=== PATIENT | female | born 1940 | race Caucasian/White ===

== ENCOUNTER → 2021-03-31 | Outpatient (CLI) | payer BC ==
[~2021-03-31] MED LIST: Aspir-Low81 MG PO; BIEST/PROGESTERONE; DHEA PO; LIOTHYRONINE S MC; PROGESTERONE M100 GM MC; Percocet 5-3251 EACH PO; T3/T4 SR; [UNRECOGNIZED DRUG - OTHER] PO
== END | disposition home or self-care (01) ==
LOC: LAB 13:44 → LAB SHORT 13:44
DX: D48.5 Neoplasm of uncertain behavior of skin (principal)
CPT/HCPCS: 88305

== ENCOUNTER 2024-08-21 09:07 | Inpatient (IN) | payer BC ==
[2024-08-21] VITALS (18 sets, daily range): BP systolic 122–161; BP diastolic 53–113
[~2024-08-21] VITALS: Ht 167.6 cm; Wt 48.6 kg
[~2024-08-21 09:07] MED LIST changes: +B-12500 MC2 PO; +DONEPEZIL HCL10 MG PO; +KEPPRA250 M1 PO; +LEVOTHYROXINE50 MC9 PO; +MAGNESIUM OXID500 MG PO; +Percocet 5-3251 EACH; +RESVERATROL100 MG PO; +Vitamin C100 MG; +Vitamin D1000 UNI1 PO
[2024-08-21] MEDS ORDERED: Lactated Ringer's 1,000 ML IV SCH (10:05)
[2024-08-21] MEDS ORDERED: CeFAZolin Sodium 2,000 MG in NS 100 ML IV SCH (10:05)
[2024-08-21] MEDS ORDERED: CeFAZolin Sodium 2,000 MG VIAL ONE (10:25)
--- NOTE | 2024-08-21 10:35 | NUR ---
Ambulatory in Day Surgery WITH STEADY GAIT. History, Chart, Medications and Allergies reviewed before start of procedure. PT'S SPOUSE AND SON AT BEDSIDE TO HELP WITH PT'S HISTORY. PT HAS HX OF ALZHEIMERS AND DEMENTIA. Pre-Op teaching done. Pt verbalizes understanding WELL SPOUSE AND SON. PT TO BE EXTENDED RECOVERY. ALL BELONGINS PLACED UNDER GURN.
[2024-08-21] MEDS ORDERED: Bupivacaine 0.5% HCl 5 MG/ML 30MLVIAL ONE (10:36)
[2024-08-21] MEDS ORDERED: Bupivacaine 0.25% Epi 1:200000 30 ML Vial ONE (10:46)
[2024-08-21] MEDS ORDERED: Dexamethasone Sod Phos 10 MG/ML 1ML VIAL ONE (10:54)
[2024-08-21] MEDS ORDERED: Ketorolac Tromethamine 30mg Vial ONE (10:54)
[2024-08-21] MEDS ORDERED: propofoL 20 ML IV ONE (10:54)
[2024-08-21] MEDS ORDERED: Ondansetron HCl 2 MG / ML 2ML Vial ONE ×2 (10:54→12:50)
[2024-08-21] MEDS ORDERED: FentaNYL Citrate 50 MCG/ML 2 ML Injection ONE ×2 (10:54→12:52)
[2024-08-21] MEDS ORDERED: Rocuronium Bromide 10 MG/ML 5ML Injection IV ONE (10:56)
[2024-08-21] MEDS ORDERED: Lidocaine HCl 2% 20 ML MDV ONE (11:59)
[2024-08-21] MEDS ORDERED: HYDROmorphone HCl/Pf 1MG SYR IV PRN (12:00)
[2024-08-21] MEDS ORDERED: FentaNYL Citrate 50 MCG/ML 2 ML Injection IV PRN ×2 (12:00→12:05)
[2024-08-21] MEDS ORDERED: Ondansetron HCl 2 MG / ML 2ML Vial IV PRN (12:00)
[2024-08-21] MEDS ORDERED: HYDROmorphone HCl 0.5 MG/0.5 ML SYR IV PRN (12:00)
[2024-08-21] MEDS ORDERED: Acetaminophen 325 MG TABLET PO PRN ×2 (12:05→12:30)
[2024-08-21] MEDS ORDERED: Ketorolac Tromethamine 15mg Vial IV PRN (12:10)
[2024-08-21] MEDS ORDERED: HYDROcodone 5-APAP 325 TAB PO PRN (12:25)
[2024-08-21] MEDS ORDERED: FLU VACC TS2024-25(6MOS UP)/PF 45 MCG/0.5 ML SYRINGE IM ONE (12:25)
--- NOTE | 2024-08-21 13:44 | NUR ---
POST OP ARRIVED FROM PACU VIA GURNEY W/ AND SON, AWAKE, ALERT AND ORIENTED TO SELF AND FAMILY, COOPERATIVE W/ ASSESSMENT, DENIES ANY NEED FOR PAIN MEDS AT THIS TIME, BENJAMIN DRAIN NOTED ON L CHEST W/ SCANT AMOUNT OF SEROSANG. DRAINAGE, PT IS NOTED PICKING AT BREAST BINDER AND BENJAMIN DRAIN, PT REDIRECTED, CONT. TO MONITOR FOR ANY CHANGES.
--- NOTE | 2024-08-21 14:46 | NUR ---
Spiritual Care Visit. Pt. is known to this menswear salesperson from the community. Pt. displays evidence of significant confusion. Pts. Spouse and son are at bedside. Ass rapport was being re-established, this menswear salesperson received a call from the ICU. Prayed for the Pt. before I departed. Will follow up with Pt. and spouse.
--- NOTE | 2024-08-21 15:30 | NUR ---
PT CONT. TO PULL AT DSG AND LINES AND GETTING AGITATED, CLINICAL SITTER IN ROOM PRESENT, FAMILY AT BEDSIDE.
--- NOTE | 2024-08-21 16:56 | NUR ---
SUMMARY S/P L MASTECTOMY, CONFUSED, PULLING AT LINES AND DRESSINGS, 1:1 CLINICAL SITTER AT BEDSIDE, FAMILY HAD CONCERNS ABOUT CARING FOR PT AT DC, FAMILY HAD A DISCUSSION W/ JOB ANALYST THIS AFTERNOON, VSS, NO ACUTE CHANGES THIS SHIFT.
--- NOTE | 2024-08-21 17:06 | NUR ---
Returned to visit Pt. Pt. displays evidence of significant confusion. Sit next to the Pt. and attempt to speak to her. and a 1:1 sitter are present. After spending time with the Pt. I ttok her hand and prayed for her. Spouse verbalized gratitude for the bedside care and welcomed this police superintendent to return.
--- NOTE | 2024-08-21 18:38 | NUR ---
DR. DUENAS SAW PT THIS EVENING, VS NOTED, PT MEDICATED FOR PAIN, AT MOST OF HER DINNER, NOW SLEEPING, RRR, SITTER AT BEDSIDE FOR SAFETY, NO OTHER CHANGES THIS SHIFT.
[2024-08-21] MEDS ORDERED: Docusate Sodium 100 MG Cap PO SCH (21:00)
[2024-08-21] MEDS ORDERED: Donepezil HCl 5 MG Tab PO SCH (21:00)
[2024-08-21] MEDS ORDERED: LevETIRAcetam 500 MG Tab PO SCH (21:00)
[2024-08-22] VITALS: BP 112/57
[2024-08-22 04:27] VITALS: BP 104/62
[2024-08-22] MEDS ORDERED: Levothyroxine Sodium 0.05 MG Tab PO SCH (06:00)
--- NOTE | 2024-08-22 06:10 | NUR ---
SHIFT SUMMARY NOC. PT POD 1 FOR LEFT MASTECTOMY. DRESSING C/D/I WITH BINDER IN PLACE. BENJAMIN DRAIN PRODUCING SEROSANG DRAINAGE AND TUBING FREE OF KINKS. PT VOIDING URINE AND TOLERATING MINIMAL INTAKE WHILE AWAKE. PT ATTEMPTED TO GET OUT OF BED MULITIPLE TIMES THIS SHIFT. PT HAD SITTER T/O NIGHT. PT A/O TO SELF AND FAMILY ONLY WITH HX OF DEMENTIA/ALZ. PT REFUSED BEDTIME MEDS AND BECAME AGGITATED. THIS RN AND MACHINE CHAIN MAKER ATTEMPTED TO GET PT TO TAKE PILLS. PT C/O PAIN THIS AM, TOOK THYROID AND PAIN PILL. PT HAD DIFFICULTY FOLLOWING DIRECTIONS AND REPEATEDLY SPIT OUT PILLS. CRUCHED MEDS IN APPLESAUCE AND PT TOLERATED BETTER BUT TOOK LOTS OF COACHING. RESTED WITH EYES CLOSED AND CALL LIGHT IN REACH.
[2024-08-22 07:42] VITALS: BP 122/72
[2024-08-22] MEDS ORDERED: Cyanocobalamin 500 MCG Tab PO SCH (09:00)
[2024-08-22] MEDS ORDERED: Ascorbic Acid 250 MG Chew PO SCH (09:00)
[2024-08-22] MEDS ORDERED: Magnesium Oxide 400 MG Tab PO SCH (09:00)
[2024-08-22] MEDS ORDERED: Cholecalciferol 1000 Unit Tablet (=25MCG) PO SCH (09:00)
[2024-08-22] MEDS ORDERED: ACET325 PO (10:31)
[2024-08-22] MEDS ORDERED: DOCU100 PO (10:31)
[2024-08-22] MEDS ORDERED: HYDR1TAB94 PO (10:32)
--- NOTE | 2024-08-22 11:12 | NUR ---
DISCHARGE POD 1 L MASTECTOMY DRESSING CHANGED THIS MORNING BY DR. DUENAS. BINDER REMAINED IN PLACE DURING SHIFT. BENJAMIN DRAIN EMPTIED PRIOR TO DISCHARGE, EDUCATED SPOUSE AND PATIENTS SON ON EMPTYING AND CHARTING OUTPUT. EXTRA SUPPLIES SENT WITH PATIENT AND FAMILY. ALL INSTRUCTIONS GONE OVER WIHT FAMILY, ALL BELONGINGS WITH PATIENT. ESCORTED OUT VIA WHEELCHAIR.
== END 2024-08-22 11:04 | disposition home or self-care (01) | DRG 583 ==
LOC: SURS 09:07 → PRE IP 10:30 → SURS 13:26
PROVIDERS: ADMIT Surgery
PROC: 0HBU0ZZ Excision of Left Breast, Open Approach (ICD-10-PCS; principal; 2024-08-21 10:30)
DX: C79.81 Secondary malignant neoplasm of breast (principal); E03.9 Hypothyroidism, unspecified; G31.83 Neurocognitive disorder with Lewy bodies; Z66 Do not resuscitate; F02.80 Dementia in other diseases classified elsewhere, unspecified severity, without behavioral disturbance, psychotic disturbance, mood disturbance, and anxiety; G30.9 Alzheimer's disease, unspecified; E78.5 Hyperlipidemia, unspecified; Z90.49 Acquired absence of other specified parts of digestive tract; Z90.89 Acquired absence of other organs; Z98.890 Other specified postprocedural states; Z79.82 Long term (current) use of aspirin; Z79.899 Other long term (current) drug therapy; Z79.890 Hormone replacement therapy; C43.9 Malignant melanoma of skin, unspecified
CPT/HCPCS: 88305; 88341; 88342; 94760; A9270; J0690; J1100; J1885; J2405; J2704; J3010; J7120

== ENCOUNTER → 2024-10-03 | Outpatient (CLI) | payer BC ==
[~2024-10-03] MED LIST changes: +ACET325 PO; +DOCU100 PO; +HYDR1TAB94 PO
[2024-10-10 08:40] LABS: HPV HIGH RISK BY TMA Not Detected; HPV SOURCE Vaginal
== END | disposition home or self-care (01) ==
LOC: LAB SHORT 10:14 → LAB 10:14
PROVIDERS: Obstetrics & Gynecology
DX: C43.9 Malignant melanoma of skin, unspecified (principal)
CPT/HCPCS: 87624; G0123

== ENCOUNTER → 2024-12-25 | Outpatient (CLI) | payer BC ==
[2024-12-26 11:08] LABS: Source, Urine Clean Catch
[2024-12-26 12:08] LABS: Bilirubin, Urine Neg (Neg); Color, Urine Yellow (P-Yellow); Glucose Qualitative, Urine Neg (Neg); Ketones, Urine Neg (Neg); Leukocyte Esterase, Urine 3+ (Neg); Protein, Urine 2+ (Neg); Specific Gravity, Urine 1.020 (1.003-1.022); Urobilinogen, Urine NORM (Normal)
[2024-12-26 12:28] LABS: White Blood Cells, Urine 25-50 /hpf (0-5)
== END | disposition home or self-care (01) ==
LOC: LAB SHORT 20:30 → LAB 20:30
PROVIDERS: Family Medicine
DX: N39.0 Urinary tract infection, site not specified (principal)
CPT/HCPCS: 81001; 87077; 87086; 87186

== ENCOUNTER → 2025-01-04 | Outpatient (CLI) | payer BC ==
[2025-01-04 12:52] LABS: BASOPHILS ABSOLUTE AUTO 0.04 K/mm3 (0.00-0.23); BASOPHILS PERCENT AUTO 1 % (0-2); EOSINOPHILS ABSOLUTE AUTO 0.05 K/mm3 (0.00-0.68); EOSINOPHILS PERCENT AUTO 1 % (0-6); Hematocrit 41.1 % (33.0-51.0); Hemoglobin 13.6 g/dL (11.5-16.0); IMMATURE GRAN ABSOLUTE AUTO 0.05 K/mm3 (0.00-0.10); IMMATURE GRAN PERCENT AUTO 1 % (0-1); LYMPHOCYTES ABSOLUTE AUTO 1.06 K/mm3 (0.84-5.20); LYMPHOCYTES PERCENT AUTO 24 % (21-46); MONOCYTES ABSOLUTE AUTO 0.35 K/mm3 (0.16-1.47); MONOCYTES PERCENT AUTO 8 % (4-13); Mean Corpuscular HGB Conc 33.1 g/dL (31.5-36.5); Mean Corpuscular Volume 100 fL (80-100); NEUTROPHILS ABSOLUTE AUTO 2.88 K/mm3 (1.96-9.15); NEUTROPHILS PERCENT AUTO 65 % (41-73); NRBC ABSOLUTE 0.00 K/mm3 (0.00-0.02); NRBC Auto 0.0 /100 WBC (0.0-0.2); Platelet Count 204 K/mm3 (150-400); RDW Coefficient Variation 13.0 % (11.7-14.2); RDW Standard Deviation 47.8 fL (35.1-46.3)
[2025-01-04 14:41] LABS: Alanine Aminotransfer (ALT/SGP 27.0 U/L (12-78); Albumin, Blood 3.2 g/dL (3.4-5.0); Albumin/Globulin Ratio 0.9 (0.8-1.8); Anion Gap 9.0 mmol/L (3-11); Aspartate Aminotrans (AST/SGOT 23.0 U/L (12-37); Bilirubin, Total 0.5 mg/dL (0.1-1.0); Blood Urea Nitrogen 15.0 mg/dL (8-24); CO2, Blood 28.0 mmol/L (21-32); Calcium, Blood 9.1 mg/dL (8.5-10.1); Chloride, Blood 108.0 mmol/L (98-108); Creatinine, Blood 0.86 mg/dL (0.40-1.00); Globulin, Blood 3.7 g/dL (2.2-4.0); Glucose, Blood 95.0 mg/dL (70-99); Potassium, Blood 3.7 mmol/L (3.5-5.5); Sodium, Blood 141.0 mmol/L (136-145); Thyroid Stimulating Hormone 1.98 uIU/mL (0.360-4.800); Total Protein, Blood 6.9 g/dL (6.4-8.2)
== END ==
LOC: LAB 12:10 → LAB SHORT 12:10
PROVIDERS: Family Medicine
DX: I10 Essential (primary) hypertension (principal); E03.9 Hypothyroidism, unspecified
CPT/HCPCS: 80053; 84443; 85025

== ENCOUNTER 2025-04-29 13:26 | Emergency (ER) | payer BC ==
[~2025-04-29] VITALS: Ht 167.6 cm; Wt 63.5 kg
--- NOTE | 2025-04-29 14:59 | NUR ---
Pt. is awake in ED3 and displays evidence of confusion. Spouse is at bedside and welcomes my visit. Pt. and spouse are both known to this digital media associate from the community. Facilitated an update from the spouse. Pt. is known to be a Pt. at [facility]. Prayed over the Pt. Spouse verbalized gratitude for the spiritual care visit and requested I share that I visited the Pt. with the elders of their bahai.
[2025-04-29 15:00] VITALS: BP 146/91
[2025-04-29] MEDS ORDERED: FentaNYL Citrate 50 MCG/ML 2 ML Injection IV ONE (16:10)
[2025-04-29] MEDS ORDERED: Ketorolac Tromethamine 15mg Vial IV ONE (16:10)
[2025-04-29] MEDS ORDERED: Percocet 5-3251 EACH PO (17:46)
[2025-04-29] MEDS ORDERED: OFLOXACIN5 M2 LEFTEAR (17:46)
== END 2025-04-29 18:05 | disposition home or self-care (01) ==
LOC: ER 13:26
DX: S02.622A Fracture of subcondylar process of left mandible, initial encounter for closed fracture (principal); S02.612A Fracture of condylar process of left mandible, initial encounter for closed fracture; S01.81XA Laceration without foreign body of other part of head, initial encounter; E03.9 Hypothyroidism, unspecified; Z79.890 Hormone replacement therapy; Z79.899 Other long term (current) drug therapy; Z59.89 Other problems related to housing and economic circumstances; W18.30XA Fall on same level, unspecified, initial encounter
CPT/HCPCS: 12013; 70450; 70486; 72125; 96374-59; 96375-59; 99284-25; J1885; J3010; L0160

== ENCOUNTER 2025-05-18 17:53 | Inpatient (IN) | payer BC ==
[~2025-05-18] VITALS: Ht 165.1 cm; Wt 51.7 kg
[~2025-05-18 17:53] MED LIST changes: +OFLOXACIN5 M2 LEFTEAR
[2025-05-18] MEDS ORDERED: Morphine Sulfate 4 MG/1 ML Injection IV ONE (19:00)
[2025-05-18 19:56] LABS: BASOPHILS ABSOLUTE AUTO 0.04 K/mm3 (0.00-0.23); BASOPHILS PERCENT AUTO 0 % (0-2); EOSINOPHILS ABSOLUTE AUTO 0.03 K/mm3 (0.00-0.68); EOSINOPHILS PERCENT AUTO 0 % (0-6); Hematocrit 44.1 % (33.0-51.0); Hemoglobin 14.1 g/dL (11.5-16.0); IMMATURE GRAN ABSOLUTE AUTO 0.06 K/mm3 (0.00-0.10); IMMATURE GRAN PERCENT AUTO 1 % (0-1); LYMPHOCYTES ABSOLUTE AUTO 0.97 K/mm3 (0.84-5.20); LYMPHOCYTES PERCENT AUTO 10 % (21-46); MONOCYTES ABSOLUTE AUTO 0.37 K/mm3 (0.16-1.47); MONOCYTES PERCENT AUTO 4 % (4-13); Mean Corpuscular HGB Conc 32.0 g/dL (31.5-36.5); Mean Corpuscular Volume 102 fL (80-100); NEUTROPHILS ABSOLUTE AUTO 8.46 K/mm3 (1.96-9.15); NEUTROPHILS PERCENT AUTO 85 % (41-73); NRBC ABSOLUTE 0.00 K/mm3 (0.00-0.02); NRBC Auto 0.0 /100 WBC (0.0-0.2); Platelet Count 188 K/mm3 (150-400); RDW Coefficient Variation 13.2 % (11.7-14.2); RDW Standard Deviation 50.0 fL (35.1-46.3)
[2025-05-18 20:09] LABS: Source, Urine Foley catheter
[2025-05-18 20:12] LABS: Bilirubin, Urine Neg (Neg); Color, Urine Yellow (P-Yellow); Glucose Qualitative, Urine Neg (Neg); Ketones, Urine Neg (Neg); Leukocyte Esterase, Urine 3+ (Neg); Protein, Urine 1+ (Neg); Specific Gravity, Urine 1.010 (1.003-1.022); Urobilinogen, Urine NORM (Normal)
[2025-05-18 20:23] LABS: Red Blood Cells, Urine 0-2 /hpf (0-2); White Blood Cells, Urine 50-100 /hpf (0-5)
[2025-05-18 20:28] LABS: Anion Gap 10.0 mmol/L (3-11); Blood Urea Nitrogen 20.0 mg/dL (8-24); CO2, Blood 23.0 mmol/L (21-32); Calcium, Blood 9.1 mg/dL (8.5-10.1); Chloride, Blood 109.0 mmol/L (98-108); Creatinine, Blood 1.02 mg/dL (0.40-1.00); Glucose, Blood 111.0 mg/dL (70-99); Magnesium, Blood 2.1 mg/dL (1.6-2.4); Potassium, Blood 4.7 mmol/L (3.5-5.5); Sodium, Blood 137.0 mmol/L (136-145); Thyroid Stimulating Hormone 1.52 uIU/mL (0.360-4.800)
[2025-05-18] MEDS ORDERED: Morphine Sulfate 4 MG/1 ML Injection IV PRN (21:00)
[2025-05-18] MEDS ORDERED: FLU VACC TS2025(65UP)/MF59C/PF 45 MCG/0.5 ML SYRINGE IM SCH (21:00)
[2025-05-18] MEDS ORDERED: Ondansetron HCl 2 MG / ML 2ML Vial IV PRN (21:05)
[2025-05-18] MEDS ORDERED: Naloxone HCl 0.4MG / ML 1ML Vial IV PRN (21:05)
[2025-05-18] MEDS ORDERED: CefTRIAXone Sodium 1,000 MG in NS 100 ML IV SCH (22:00)
[2025-05-18 23:44] VITALS: BP 142/76
[2025-05-19] VITALS (16 sets, daily range): BP systolic 91–135; BP diastolic 51–99
[2025-05-19] MEDS ORDERED: Morphine Sulfate 4 MG/1 ML Injection IV PRN (02:15)
[2025-05-19] MEDS ORDERED: ACET500 PO (05:08)
[2025-05-19] MEDS ORDERED: LOPE2C PO (05:12)
[2025-05-19] MEDS ORDERED: DULCOLAX400 MG/51 PO (05:15)
[2025-05-19] MEDS ORDERED: MIRALAX1714 PO (05:19)
[2025-05-19] MEDS ORDERED: Seroquel Xr50 MG PO (05:20)
[2025-05-19 05:33] LABS: BASOPHILS ABSOLUTE AUTO 0.04 K/mm3 (0.00-0.23); BASOPHILS PERCENT AUTO 0 % (0-2); EOSINOPHILS ABSOLUTE AUTO 0.00 K/mm3 (0.00-0.68); EOSINOPHILS PERCENT AUTO 0 % (0-6); Hematocrit 38.8 % (33.0-51.0); Hemoglobin 13.0 g/dL (11.5-16.0); IMMATURE GRAN ABSOLUTE AUTO 0.10 K/mm3 (0.00-0.10); IMMATURE GRAN PERCENT AUTO 1 % (0-1); LYMPHOCYTES ABSOLUTE AUTO 0.90 K/mm3 (0.84-5.20); LYMPHOCYTES PERCENT AUTO 6 % (21-46); MONOCYTES ABSOLUTE AUTO 0.65 K/mm3 (0.16-1.47); MONOCYTES PERCENT AUTO 4 % (4-13); Mean Corpuscular HGB Conc 33.5 g/dL (31.5-36.5); Mean Corpuscular Volume 98 fL (80-100); NEUTROPHILS ABSOLUTE AUTO 13.90 K/mm3 (1.96-9.15); NEUTROPHILS PERCENT AUTO 89 % (41-73); NRBC ABSOLUTE 0.00 K/mm3 (0.00-0.02); NRBC Auto 0.0 /100 WBC (0.0-0.2); Platelet Count 168 K/mm3 (150-400); RDW Coefficient Variation 13.2 % (11.7-14.2); RDW Standard Deviation 47.5 fL (35.1-46.3)
[2025-05-19 05:42] LABS: Prothrombin Time Results 11.7 Sec (9.7-11.5)
[2025-05-19 05:57] LABS: Alanine Aminotransfer (ALT/SGP 39.0 U/L (12-78); Albumin, Blood 3.0 g/dL (3.4-5.0); Albumin/Globulin Ratio 1.0 (0.8-1.8); Anion Gap 8.0 mmol/L (3-11); Aspartate Aminotrans (AST/SGOT 40.0 U/L (12-37); Bilirubin, Total 0.7 mg/dL (0.1-1.0); Blood Urea Nitrogen 20.0 mg/dL (8-24); CO2, Blood 29.0 mmol/L (21-32); Calcium, Blood 9.0 mg/dL (8.5-10.1); Chloride, Blood 108.0 mmol/L (98-108); Creatinine, Blood 0.86 mg/dL (0.40-1.00); Globulin, Blood 3.1 g/dL (2.2-4.0); Glucose, Blood 140.0 mg/dL (70-99); Magnesium, Blood 2.0 mg/dL (1.6-2.4); Potassium, Blood 4.6 mmol/L (3.5-5.5); Sodium, Blood 140.0 mmol/L (136-145); Total Protein, Blood 6.1 g/dL (6.4-8.2)
--- NOTE | 2025-05-19 06:38 | NUR ---
SHIFT SUMMARY PT ADMITTED TO FLOOR VIA ER D/T L HIP FX AFTER GLF. HX OF ALZHEIMERS AND UNABLE TO PROVIDE VERBAL INPUT. PAIN MANAGED WELL PER EMAR. SPO2 95% ON 2L O2 VIA NC. POLK CATH IN PLACE, PATENT, AND DRAINING TO GRAVITY. PT NPO @ 0000 IN ANTICIPATION OF SURGERY TODAY. PT RESTING IN BED, RESPIRATIONS EVEN AND UNLABORED. BED ALARM ON AND CALL LIGHT WITHIN REACH.
[2025-05-19] MEDS ORDERED: Polyethylene Glycol 3350 17 gm PO PRN (07:25)
[2025-05-19] MEDS ORDERED: HYDROcodone 5-APAP 325 TAB PO PRN ×2 (07:25→18:00)
--- NOTE | 2025-05-19 08:56 | NUR ---
0885 PT'S /POA IN ROOM WITH PT. DR GONZALEZ EN ROUTE.
[2025-05-19] MEDS ORDERED: Lactobacil 2-S.Thermo-Bifido 1 1 Cap PO SCH (09:00)
[2025-05-19] MEDS ORDERED: Tranexamic Acid 100 ML IV SCH (11:20)
[2025-05-19] MEDS ORDERED: Ropivacaine 0.5% HCl/Pf 123.125 MG,EPINEPHrine HCL 0.25 MG,Ketorolac Tromethamine 15 MG... INFIL SCH (11:20)
[2025-05-19] MEDS ORDERED: CeFAZolin Sodium 2,000 MG in NS 100 ML IV SCH (11:20)
[2025-05-19] MEDS ORDERED: CefTRIAXone 1000 MG Vial ONE (14:36)
--- NOTE | 2025-05-19 15:28 | NUR ---
PT TO PACU VIA BED AT 1455 FROME RM 212 FOR PREOP CARE. AT BEDSIDE SPEAKING FOR PT. WARM BLANKETS PLACED. PT RESTING QUIETLY ON RIGHT SIDE. SURGICAL PACK COMPLETE. SURGICAL HAT/BP CUFF PLACED. AFEBRILE/VSS. LR AT TKO. APPEARS COMFORTABLE & RELAXED. WILL CONTINUE TO MONITOR PT DURING MY CARE.
--- NOTE | 2025-05-19 15:32 | NUR ---
PT TO OR 3 VIA BED AT 1525 IN STABLE CONDITION.
[2025-05-19] MEDS ORDERED: Phenylephrine HCl 100 MCG/ML-NS 10MLSYR (1MG/10ML) ONE ×2 (16:30)
[2025-05-19] MEDS ORDERED: Dexamethasone Sod Phos 10 MG/ML 1ML VIAL ONE (16:42)
[2025-05-19] MEDS ORDERED: Ondansetron HCl 2 MG / ML 2ML Vial ONE (16:42)
[2025-05-19] MEDS ORDERED: Sugammadex Sodium 200 MG/2ML SDV (100 MG/ML) ONE (17:08)
--- NOTE | 2025-05-19 17:18 | NUR ---
SHIFT SUMMARY PT PRESENTLY IN OR GETTING A LILIAN HIP SURGERY BY DR GONZALEZ. AWAITING PACU DISCHARGE AND RETURN TO FLOOR.
[2025-05-19] MEDS ORDERED: HYDROmorphone HCl/Pf 1MG SYR IV PRN ×2 (17:30→18:00)
[2025-05-19] MEDS ORDERED: FentaNYL Citrate 50 MCG/ML 2 ML Injection IV PRN ×2 (17:35)
[2025-05-19] MEDS ORDERED: Ondansetron HCl 2 MG / ML 2ML Vial IV PRN ×2 (17:35→17:55)
[2025-05-19] MEDS ORDERED: Naloxone HCl 0.4MG / ML 1ML Vial IV PRN (17:55)
[2025-05-19] MEDS ORDERED: Magnesium Hydroxide Conc 10 ML UDC PO PRN (17:55)
[2025-05-19] MEDS ORDERED: FLU VACC TS2025(65UP)/MF59C/PF 45 MCG/0.5 ML SYRINGE IM SCH (18:00)
[2025-05-19] MEDS ORDERED: Ketorolac Tromethamine 15mg Vial IV PRN (18:05)
--- NOTE | 2025-05-19 18:30 | NUR ---
PT TO ROOM 212 FROM PACU. L HIP DRESSING CDI. PT SLEEPY. POST OP VS STARTED. LR @ 50/HR RESTARTED. SO AT BEDSIDE. SCDS ON. POLK CATHETER IN PLACE DRAINING CLEAR YELLOW URINE. WILL CONTINUE TO MONITOR.
--- NOTE | 2025-05-20 01:06 | NUR ---
PHARM CHIKI BHAGAT NOW AND BID ORDER TO START @7754
[2025-05-20 05:10] LABS: BASOPHILS ABSOLUTE AUTO 0.02 K/mm3 (0.00-0.23); BASOPHILS PERCENT AUTO 0 % (0-2); EOSINOPHILS ABSOLUTE AUTO 0.00 K/mm3 (0.00-0.68); EOSINOPHILS PERCENT AUTO 0 % (0-6); Hematocrit 34.6 % (33.0-51.0); Hemoglobin 11.0 g/dL (11.5-16.0); IMMATURE GRAN ABSOLUTE AUTO 0.07 K/mm3 (0.00-0.10); IMMATURE GRAN PERCENT AUTO 1 % (0-1); LYMPHOCYTES ABSOLUTE AUTO 0.64 K/mm3 (0.84-5.20); LYMPHOCYTES PERCENT AUTO 6 % (21-46); MONOCYTES ABSOLUTE AUTO 0.47 K/mm3 (0.16-1.47); MONOCYTES PERCENT AUTO 4 % (4-13); Mean Corpuscular HGB Conc 31.8 g/dL (31.5-36.5); Mean Corpuscular Volume 102 fL (80-100); NEUTROPHILS ABSOLUTE AUTO 10.39 K/mm3 (1.96-9.15); NEUTROPHILS PERCENT AUTO 90 % (41-73); NRBC ABSOLUTE 0.00 K/mm3 (0.00-0.02); NRBC Auto 0.0 /100 WBC (0.0-0.2); Platelet Count 122 K/mm3 (150-400); RDW Coefficient Variation 13.3 % (11.7-14.2); RDW Standard Deviation 50.0 fL (35.1-46.3)
[2025-05-20 05:37] LABS: Alanine Aminotransfer (ALT/SGP 29.0 U/L (12-78); Albumin, Blood 2.3 g/dL (3.4-5.0); Albumin/Globulin Ratio 0.7 (0.8-1.8); Anion Gap 9.0 mmol/L (3-11); Aspartate Aminotrans (AST/SGOT 48.0 U/L (12-37); Bilirubin, Total 0.6 mg/dL (0.1-1.0); Blood Urea Nitrogen 23.0 mg/dL (8-24); CO2, Blood 25.0 mmol/L (21-32); Calcium, Blood 8.6 mg/dL (8.5-10.1); Chloride, Blood 114.0 mmol/L (98-108); Creatinine, Blood 0.7 mg/dL (0.40-1.00); Globulin, Blood 3.1 g/dL (2.2-4.0); Glucose, Blood 141.0 mg/dL (70-99); Magnesium, Blood 2.0 mg/dL (1.6-2.4); Phosphorus, Blood 3.9 mg/dL (2.5-4.9); Potassium, Blood 5.1 mmol/L (3.5-5.5); Sodium, Blood 143.0 mmol/L (136-145); Total Protein, Blood 5.4 g/dL (6.4-8.2)
--- NOTE | 2025-05-20 06:30 | NUR ---
SHIFT SUMMARY POD 1 L HIP LILIAN ARTHROPLASTY. PT DROWSY BUT RESPONDS TO VERBAL STIMULI. HX OF ALZHEIMER. PT ORIENTED TO SELF AT TIMES, UNCOOPERATIVE WITH CARE, AND COMBATIVE THIS SHIFT. NO PO INTAKE THIS SHIFT. PAIN MANAGED WELL PER EMAR. CONTINUOUS PULSE OX IN PLACE SPO2 93% ON RA. DRESSING TO L HIP C/D/I. POLK IN PLACE, PATENT, AND DRAINING TO GRAVITY. PT RESTING IN BED, RESPIRATIONS EVEN AND UNLABORED. CALL LIGHT WITHIN REACH.
[2025-05-20 07:20] VITALS: BP 126/70
[2025-05-20 14:35] VITALS: BP 152/75
--- NOTE | 2025-05-20 15:36 | NUR ---
PT ARRIVED TO UNIT VIA BED, SEIZURE PADS IN PLACE, INDEWLLING CATHETER DRAINING DARK YELLOW URINE, PT ORIENTED X1-AWAKE, HX OF LEWY DEMENTIA, AZHEIMERS-PER REPORT PT IS INCOHERENT AND UNDIRECTABLE, CAN BE PHYSICALLY AGGRESSIVE AND WILL SPIT MEDICATIONS. VSS, CAP REFILL TO LEFT FOOT GREATER THAN 3 SECONDS, PT MOVES TOES WHEN TOUCHED. HIP DRESSING CDI. IV SL TO LEFT FA-CDI, SKIN TEAR LEFT ELBOW-FOAM DRESSING CDI, WBAT WITH POSTERIOR HIP PRECUATIONS- 2P MAX ASSIST. BED ALARM ON, CALL LIGHT IN REACH.
--- NOTE | 2025-05-20 16:44 | NUR ---
TRANSFER NOTE: PATIENT TRANSFERED TO MEDICAL FLOOR ROOM 347. PATIENT JOSES PROVIDED TO PATIENT. THIS NURSE GAVE REPORT TO JESUS COTA.
[2025-05-20] MEDS ORDERED: Enoxaparin 40 MG/0.4 ML SYR SC SCH (17:00)
[2025-05-20] MEDS ORDERED: Polyethylene Glycol 3350 17 gm PO ONE (17:20)
[2025-05-20] MEDS ORDERED: THERA-D2000 UNIT PO (17:28)
[2025-05-20] MEDS ORDERED: 8 HOUR ACETAMI650 MG PO (17:30)
[2025-05-20] MEDS ORDERED: BISMUTH SUBSALICYLAT PO (17:32)
[2025-05-20 17:48] VITALS: BP 109/81
--- NOTE | 2025-05-20 18:11 | NUR ---
SKIN ASSESSMENT COMPLETED BY THIS RN AND HOSSEIN LEE UPON PT ARRIVAL TO MEDICAL UNIT. SKIN TEAR TO LEFT ELBOW-DRSG CDI, ABRAIONS TO BILATERAL ELBOW, LEFT HIP SURGICAL INCISION DRESSING CDI.
--- NOTE | 2025-05-20 18:42 | NUR ---
TRANSFER FROM SURGICAL FLOOR THIS AFTERNOON, PER DR LOUIS GIVE ORAL PAIN MEDS VS IV PER EMAR- TO KEEP PT'S PAIN COMFORTABLE, IF PT RESTING OR SHOWS NO DISCOMFORT DO NOT GIVE. CRUSH MEDS IN APPLESAUCE AND GIVE SMALL BITES AT A TIME TO PREVENT PT FROM SPITTING. VISITING THIS EVENING. BED ALARM AT ALL TIMES-HIGH FALL RISK, CALL LIGHT IN REACH, PROPOSEFUL ROUNDING.
[2025-05-20 19:59] VITALS: BP 135/104
[2025-05-20] MEDS ORDERED: NS 250 ML IV PRN (20:05)
--- NOTE | 2025-05-20 23:51 | NUR ---
SPOKE W/ PT SPOUSE AT BEDSIDE DURING BEDSIDE REPORT. PT HAS ADVANCED DIRECTIVE, CALLED DR AND OBTAINED ORDER FOR DNR.
[2025-05-21 03:38] VITALS: BP 163/110
[2025-05-21 06:08] LABS: BASOPHILS ABSOLUTE AUTO 0.03 K/mm3 (0.00-0.23); BASOPHILS PERCENT AUTO 0 % (0-2); EOSINOPHILS ABSOLUTE AUTO 0.19 K/mm3 (0.00-0.68); EOSINOPHILS PERCENT AUTO 2 % (0-6); Hematocrit 30.3 % (33.0-51.0); Hemoglobin 10.0 g/dL (11.5-16.0); IMMATURE GRAN ABSOLUTE AUTO 0.04 K/mm3 (0.00-0.10); IMMATURE GRAN PERCENT AUTO 1 % (0-1); LYMPHOCYTES ABSOLUTE AUTO 1.02 K/mm3 (0.84-5.20); LYMPHOCYTES PERCENT AUTO 12 % (21-46); MONOCYTES ABSOLUTE AUTO 0.50 K/mm3 (0.16-1.47); MONOCYTES PERCENT AUTO 6 % (4-13); Mean Corpuscular HGB Conc 33.0 g/dL (31.5-36.5); Mean Corpuscular Volume 98 fL (80-100); NEUTROPHILS ABSOLUTE AUTO 7.01 K/mm3 (1.96-9.15); NEUTROPHILS PERCENT AUTO 80 % (41-73); NRBC ABSOLUTE 0.00 K/mm3 (0.00-0.02); NRBC Auto 0.0 /100 WBC (0.0-0.2); Platelet Count 116 K/mm3 (150-400); RDW Coefficient Variation 13.2 % (11.7-14.2); RDW Standard Deviation 46.9 fL (35.1-46.3)
--- NOTE | 2025-05-21 06:30 | NUR ---
SHIFT SUMMARY PT A&0 TO SELF AND IS MINIMALLY REDIRECTABLE. PT SLOW TO RESPOND, BUT FOLLOWS DIRECTIONS APPROPRIATELY. PT BP ELEVATED, REMAINING VSS. NO COMPLAINTS OF CP/PRESSURE OR SOB. MEDICATED FOR PAIN AND SCHEDULED MEDS ADMINISTERED. IV WAS LEAKING, IV REMOVED AND NO ADVERSE EFFECTS AT THIS TIME. NEW IV PLACED IN RAC. NO ACUTE EVENTS AT THIS TIME. PT SPENT MOST OF SHIFT IN BED RESTING. CATHETER IN PLACE, SECURED W/ STATLOCK, AND DRAINING TO GRAVITY. FALL PRECAUTIONS IN PLACE AND CALL LIGHT IN REACH.
[2025-05-21 06:42] LABS: Alanine Aminotransfer (ALT/SGP 34.0 U/L (12-78); Albumin, Blood 2.3 g/dL (3.4-5.0); Albumin/Globulin Ratio 0.8 (0.8-1.8); Anion Gap 7.0 mmol/L (3-11); Aspartate Aminotrans (AST/SGOT 69.0 U/L (12-37); Bilirubin, Total 0.5 mg/dL (0.1-1.0); Blood Urea Nitrogen 36.0 mg/dL (8-24); CO2, Blood 26.0 mmol/L (21-32); Calcium, Blood 8.8 mg/dL (8.5-10.1); Chloride, Blood 112.0 mmol/L (98-108); Creatinine, Blood 0.79 mg/dL (0.40-1.00); Globulin, Blood 3.0 g/dL (2.2-4.0); Glucose, Blood 91.0 mg/dL (70-99); Magnesium, Blood 2.0 mg/dL (1.6-2.4); Potassium, Blood 4.0 mmol/L (3.5-5.5); Sodium, Blood 141.0 mmol/L (136-145); Total Protein, Blood 5.3 g/dL (6.4-8.2)
--- NOTE | 2025-05-21 07:28 | NUR ---
CODE STATUS RN SPOKE WITH PATIENT , HECTOR, ABOUT CODE STATUS. MADE IT CLEAR THAT IF HER HEART WERE TO STOP THAT THEY DO NOT WANT ANY INTERVENTIONS DONE. PT EDUCATED ON WHAT A DNR IS AND AGREED THAT IS WHAT HER ADVANCED DIRECTIVE STATES. DR. GAMBOA NOTIFIED OF THIS. ORDER FOR DNR PLACED. ORDER VERIFIED WITH ERICA CALVIN RN AND PURPLE BAND PLACED TO WRIST.
[2025-05-21 07:37] VITALS: BP 129/70
[2025-05-21] MEDS ORDERED: Polyethylene Glycol 3350 17 gm PO SCH (09:00)
[2025-05-21 15:14] VITALS: BP 123/63
--- NOTE | 2025-05-21 16:56 | NUR ---
SHIFT SUMMARY PT VERY CONFUSED. UNABLE TO BE ORIENTED. PT FOLLOWS LITTLE DIRECTION. PHYSICAL THERAPY IN TO WORK WITH THE PATIENT WITH RN ASSISTANCE. PT WAS ABLE TO STAND A FEW TIMES BEFORE GETTING PLACED BACK INTO BED TO REST. POSTERIOR HIP PRECUATIONS IN PLACE. PT OFTEN REMOVED ROLLED TOWEL BETWEEN LEGS. NURSING REPLACED THIS NEEDED. IV FLUIDS DCED TODAY PT IS EATING. ENSURE OFFERED, PT DECLINED. PT OFFERED WATER WHEN STAFF IS IN ROOM AND DRINKS WELL. POLK REMOVED TODAY. PT HAS HAD 2 INCONT VOIDS IN ATTENDS. NO OTHER ACUTE CHANGES IN ASSESSMENT AT THIS TIME. VS REVIEWED. CALL LIGHT IN REACH.
[2025-05-21 20:02] VITALS: BP 129/87
[2025-05-22 05:59] LABS: BASOPHILS ABSOLUTE AUTO 0.02 K/mm3 (0.00-0.23); BASOPHILS PERCENT AUTO 0 % (0-2); EOSINOPHILS ABSOLUTE AUTO 0.26 K/mm3 (0.00-0.68); EOSINOPHILS PERCENT AUTO 4 % (0-6); Hematocrit 29.0 % (33.0-51.0); Hemoglobin 9.6 g/dL (11.5-16.0); IMMATURE GRAN ABSOLUTE AUTO 0.03 K/mm3 (0.00-0.10); IMMATURE GRAN PERCENT AUTO 1 % (0-1); LYMPHOCYTES ABSOLUTE AUTO 0.85 K/mm3 (0.84-5.20); LYMPHOCYTES PERCENT AUTO 15 % (21-46); MONOCYTES ABSOLUTE AUTO 0.46 K/mm3 (0.16-1.47); MONOCYTES PERCENT AUTO 8 % (4-13); Mean Corpuscular HGB Conc 33.1 g/dL (31.5-36.5); Mean Corpuscular Volume 97 fL (80-100); NEUTROPHILS ABSOLUTE AUTO 4.26 K/mm3 (1.96-9.15); NEUTROPHILS PERCENT AUTO 73 % (41-73); NRBC ABSOLUTE 0.00 K/mm3 (0.00-0.02); NRBC Auto 0.0 /100 WBC (0.0-0.2); Platelet Count 118 K/mm3 (150-400); RDW Coefficient Variation 13.2 % (11.7-14.2); RDW Standard Deviation 46.9 fL (35.1-46.3)
[2025-05-22 06:24] LABS: Alanine Aminotransfer (ALT/SGP 43.0 U/L (12-78); Albumin, Blood 2.0 g/dL (3.4-5.0); Albumin/Globulin Ratio 0.7 (0.8-1.8); Anion Gap 6.0 mmol/L (3-11); Aspartate Aminotrans (AST/SGOT 69.0 U/L (12-37); Bilirubin, Total 0.5 mg/dL (0.1-1.0); Blood Urea Nitrogen 23.0 mg/dL (8-24); CO2, Blood 26.0 mmol/L (21-32); Calcium, Blood 8.2 mg/dL (8.5-10.1); Chloride, Blood 112.0 mmol/L (98-108); Creatinine, Blood 0.59 mg/dL (0.40-1.00); Globulin, Blood 2.9 g/dL (2.2-4.0); Glucose, Blood 98.0 mg/dL (70-99); Magnesium, Blood 2.0 mg/dL (1.6-2.4); Potassium, Blood 3.4 mmol/L (3.5-5.5); Sodium, Blood 141.0 mmol/L (136-145); Total Protein, Blood 4.9 g/dL (6.4-8.2)
--- NOTE | 2025-05-22 06:30 | NUR ---
SHIFT SUMMARY PT A&O TO NONE AND MINIMALLY COOPERATES WITH CARE. PT NOT SUCCESSFULLY REDIRECTABLE, 2100 MEDICATIONS ADMINISTERED BUT PT REFUSED 0600 MEDICATIONS OR PO PAIN MEDICATIONS. PT SHOWS INCREASED AGITATION WITH REPOSITIONING AND IS NOT REDIRECTABLE. VSS, NO COMPLAINTS OF CP/PRESSURE OR SOB. PT SPEND MOST OF SHIFT IN BED WITH EYES CLOSED AND REPSIRATIONS EVEN AND UNLABORED. NO ACUTE EVENTS AT THIS TIME. PT LEFT IN A POSITION OF SAFETY WITH FALL PRECAUTIONS IN PLACE AND CALL LIGHT IN REACH.
[2025-05-22 07:57] VITALS: BP 129/71
--- NOTE | 2025-05-22 17:52 | NUR ---
SHIFT SUMMARY PT AOX1, SEMI COOPERATIVE; PINCHES STAFF IN THE MIDDLE OF CARE, NOT ABLE TO MAKE NEEDS KNOWN APPROPRIATELY. HAS BEEN BEDREST ALL SHIFT. VERY SLOW TAKING MEDICATIONS. RIGHT AC IV VERY POSITIONAL, BREAK RN PLACED ARM BOARD. ON ROOM AIR, CONT PULSE OX ON TOE AND OPERATING APPROPRIATELY. PT DID HAVE C/O OF PAIN AND REPORTED TO MD. WHEN THIS RN WENT TO ADMINISTER, PT REPORTED NO PAIN BUT OPTED TO TAKE MEDICATION ANYWAY. BED ALARM ACTIVE. BED IN LOWEST POSITION, CALL LIGHT WITHIN REACH.
[2025-05-22 20:04] VITALS: BP 129/67
[2025-05-22] MEDS ORDERED: Potassium Chloride 10 Meq Tablet SA PO ONE (21:00)
[2025-05-23 04:18] VITALS: BP 148/89
--- NOTE | 2025-05-23 04:46 | NUR ---
SHIFT SUMMARY A/O TO SELF, MEDICATED X1 FOR L. HIP PAIN AT BEGINNING OF SHIFT. PT PLEASANT AND COOPERATIVE WITH CARE THIS SHIFT. L. HIP DRESSING C/D/I. PT INCONT, ATTENDS IN PLACE. VSS, NO ACUTE CHANGES AT THIS TIME.
[2025-05-23 05:38] LABS: BASOPHILS ABSOLUTE AUTO 0.04 K/mm3 (0.00-0.23); BASOPHILS PERCENT AUTO 1 % (0-2); EOSINOPHILS ABSOLUTE AUTO 0.26 K/mm3 (0.00-0.68); EOSINOPHILS PERCENT AUTO 5 % (0-6); Hematocrit 30.1 % (33.0-51.0); Hemoglobin 10.1 g/dL (11.5-16.0); IMMATURE GRAN ABSOLUTE AUTO 0.02 K/mm3 (0.00-0.10); IMMATURE GRAN PERCENT AUTO 0 % (0-1); LYMPHOCYTES ABSOLUTE AUTO 1.00 K/mm3 (0.84-5.20); LYMPHOCYTES PERCENT AUTO 20 % (21-46); MONOCYTES ABSOLUTE AUTO 0.49 K/mm3 (0.16-1.47); MONOCYTES PERCENT AUTO 10 % (4-13); Mean Corpuscular HGB Conc 33.6 g/dL (31.5-36.5); Mean Corpuscular Volume 97 fL (80-100); NEUTROPHILS ABSOLUTE AUTO 3.17 K/mm3 (1.96-9.15); NEUTROPHILS PERCENT AUTO 64 % (41-73); NRBC ABSOLUTE 0.00 K/mm3 (0.00-0.02); NRBC Auto 0.0 /100 WBC (0.0-0.2); Platelet Count 141 K/mm3 (150-400); RDW Coefficient Variation 12.9 % (11.7-14.2); RDW Standard Deviation 45.5 fL (35.1-46.3)
[2025-05-23 06:19] LABS: Alanine Aminotransfer (ALT/SGP 40.0 U/L (12-78); Albumin, Blood 2.1 g/dL (3.4-5.0); Albumin/Globulin Ratio 0.7 (0.8-1.8); Anion Gap 6.0 mmol/L (3-11); Aspartate Aminotrans (AST/SGOT 53.0 U/L (12-37); Bilirubin, Total 0.5 mg/dL (0.1-1.0); Blood Urea Nitrogen 16.0 mg/dL (8-24); CO2, Blood 29.0 mmol/L (21-32); Calcium, Blood 8.2 mg/dL (8.5-10.1); Chloride, Blood 109.0 mmol/L (98-108); Creatinine, Blood 0.67 mg/dL (0.40-1.00); Globulin, Blood 2.9 g/dL (2.2-4.0); Glucose, Blood 93.0 mg/dL (70-99); Magnesium, Blood 1.9 mg/dL (1.6-2.4); Potassium, Blood 3.6 mmol/L (3.5-5.5); Sodium, Blood 140.0 mmol/L (136-145); Total Protein, Blood 5.0 g/dL (6.4-8.2)
[2025-05-23] MEDS ORDERED: VISBIOME 112.51 EACH PO (13:04)
[2025-05-23] MEDS ORDERED: ONDA4 PO (13:04)
[2025-05-23] MEDS ORDERED: HYDR1TAB94 PO (13:06)
[2025-05-23] MEDS ORDERED: ASPI81CH PO (13:08)
--- NOTE | 2025-05-23 15:37 | NUR ---
PT DISCHARGED TO [place]. PACKET WAS GIVEN TO RD PROJECT MANAGER FROM [place] WHO WAS TRANSPORTING PT VIA WHEELCHAIR WITH THE [place]. PT WAS ASSISTED OVER TO WHEEL CHAIR WITH TWO NURSE TRANSFER WITH [facility]. PT TOLERATED WELL AND WAS PRETREATED FOR PAIN PRIOR TO DISCHARGE. FAMILY WAS AT BEDSIDED FOR TRANFER AND ALL PERSONAL BELONGINGS COLLECTED AND TAKEN BY FAMILY.
== END 2025-05-23 14:45 | disposition home health service (06) | DRG 522 ==
LOC: ER 17:53 → SURS 21:00 → MEDS 21:00 → EDBEDREQ 21:24 → SURS 23:45 → MEDS 05-20 14:39 → ENPENDDIS 05-23 10:58 → MEDS 05-23 14:45
PROVIDERS: Emergency Medicine; Family Medicine; Hospitalist; Orthopaedic Surgery; ADMIT Student in an Organized Health Care Education/Training Program
PROC: 3E03329 Introduction of Other Anti-infective into Peripheral Vein, Percutaneous Approach (ICD-10-PCS; 2025-05-18)
PROC: 0SRS019 Replacement of Left Hip Joint, Femoral Surface with Metal Synthetic Substitute, Cemented, Open Approach (ICD-10-PCS; principal; 2025-05-19 15:00)
DX: S72.012A Unspecified intracapsular fracture of left femur, initial encounter for closed fracture (principal); N39.0 Urinary tract infection, site not specified; E46 Unspecified protein-calorie malnutrition; F05 Delirium due to known physiological condition; Z68.1 Body mass index [BMI] 19.9 or less, adult; E03.9 Hypothyroidism, unspecified; Z66 Do not resuscitate; G31.83 Neurocognitive disorder with Lewy bodies; F02.80 Dementia in other diseases classified elsewhere, unspecified severity, without behavioral disturbance, psychotic disturbance, mood disturbance, and anxiety; G30.9 Alzheimer's disease, unspecified; I10 Essential (primary) hypertension; G40.909 Epilepsy, unspecified, not intractable, without status epilepticus; K59.00 Constipation, unspecified; E88.09 Other disorders of plasma-protein metabolism, not elsewhere classified; Z90.49 Acquired absence of other specified parts of digestive tract; Z98.890 Other specified postprocedural states; Z91.81 History of falling; Z85.820 Personal history of malignant melanoma of skin; Z79.890 Hormone replacement therapy; Z79.899 Other long term (current) drug therapy; W18.30XA Fall on same level, unspecified, initial encounter
CPT/HCPCS: 36415; 51702; 70450; 72170; 73502; 80048; 80053; 81001; 82607; 82947; 83735; 84100; 84439; 84443; 85025; 85610; 87077; 87086; 87186; 88305; 88342; 94762; 96374-59; 97162; 97530; 99285-25; A9270; C1713; C1776; J0166; J0690; J0696; J0735; J1100; J1171; J1650; J1885; J1953; J2270; J2371; J2405; J2704; J2795; J3373; J3480; J7050; J7120